=== PATIENT | male | born 1985 | race Caucasian/White ===

== ENCOUNTER 2019-01-08 09:26 | Outpatient (CLI) | payer BC | END 2019-01-08 09:27 | disposition home or self-care (01) | LOC: CTENTCT 09:26 | PROVIDERS: ATTEND Otolaryngology Plastic Surgery within the Head & Neck | DX: J01.81 Other acute recurrent sinusitis (principal) | CPT/HCPCS: 70486 ==

== ENCOUNTER 2019-02-20 07:30 | Day surgery (SDC) | payer BC ==
[2019-02-19 10:40] VITALS: BMI 27.8
[2019-02-20] MEDS ORDERED: Oxymetazoline HCl 0.05% ( 15 ML ) ONE ×3 (09:07→09:46)
[2019-02-20] MEDS ORDERED: Bacitracin Zinc Ointment 30 gm TUBE ONE ×2 (09:11→09:57)
[2019-02-20] MEDS ORDERED: Lidocaine 1% w/Epinephrine 1:100K 20 ML VIAL ONE (09:11)
[2019-02-20] MEDS ORDERED: Fentanyl 100 MCG/2 ML VIAL ONE ×2 (09:59→11:38)
[2019-02-20] MEDS ORDERED: Midazolam HCl 2 mg/2 ml Vial ONE (09:59)
[2019-02-20] MEDS ORDERED: Hydrocodone-Acetamin 15 ML UDCUP ONE (13:24)
--- NOTE | 2019-02-21 10:07 | OP ---
DATE OF PROCEDURE: 02/20/2019 PREOPERATIVE DIAGNOSES: 1. Chronic rhinosinusitis. 2. Nasal septal deviation. 3. Bilateral inferior turbinate hypertrophy. 4. Nasal obstruction. POSTOPERATIVE DIAGNOSES: 1. Chronic rhinosinusitis. 2. Nasal septal deviation. 3. Bilateral inferior turbinate hypertrophy. 4. Nasal obstruction. PROCEDURES PERFORMED: 1. Bilateral endoscopic sinus surgery, total ethmoidectomies. 2. Bilateral endoscopic sinus surgery, maxillary antrostomies. 3. Bilateral endoscopic sinus surgery, frontal sinusotomies. 4. Nasal septoplasty. 5. Bilateral inferior turbinate submucosal resection. ESTIMATED BLOOD LOSS: 0 mL. COMPLICATIONS: None. ANESTHESIA: GETA. PROCEDURE IN DETAIL: Patient was taken to the operating room and placed supine on the table. General endotracheal anesthesia was obtained by the anesthesia staff. Tube was secured in the left lower lip. Patient was then placed in the beach chair position, and Afrin pledgets were placed in the nasal cavity. Injections of 1% lidocaine with 1:100,000 epinephrine were made into the nasal septum as well as the inferior turbinates. Patient was then prepped and draped in standard surgical fashion for nasal surgery. Following this, the Afrin pledgets were removed. A Whitfield incision was made on the left nasal septum. Submucoperichondrial dissection was performed. The deviated portions of the septum included portions of the cartilage and the bony septum. These isolated areas were removed using 3 cutting rongeurs. There was noted to be a large dorsal and caudal strut, left intact for support of the nose. The mucoperichondrial flaps were then reapproximated using a 4-0 gut stitch. Any straight pieces of cartilage were crushed prior to this and placed between the mucoperichondrial flaps. Following this, the inferior turbinates were then punctured with a submucosal coblation wand, and submucosal coblations were performed of multiple areas of the inferior portion of the anterior inferior turbinate. Submucosal microdebrider was used to submucosally resect the anterior and inferior portions of the inferior turbinates. Following this, a 0-degree endoscope was advanced in the middle meatus. The middle turbinates were gently medialized using a [place] elevator and the uncinate process was then identified bilaterally. Following this, the uncinate process was anteriorly fractured using a ball-ended probe and then was removed bilaterally using the 0-degree microdebrider and the up-biting Blakesley forceps. Following this, the natural maxillary sinus ostia was identified and was gently widened using the curved microdebrider and the straight Blakesley forceps bilaterally. Following this, the large middle turbinate polyp versus papilloma-like material was removed using the straight Blakesley forceps and up-biting Blakesley forceps. These were sent for pathological analysis. Following this, the ethmoidal bulla was identified and was punctured on its medial and inferior aspect using the microdebrider and was removed bilaterally using the microdebrider and up-biting Blakesley forceps. Following this, the grand lamella was identified and was punctured into the posterior ethmoidal cells. Working from posterior to anterior, the ethmoidal cells were opened using the 0-degree microdebrider, 40-degree microdebrider, and up-biting Blakesley forceps. Following this, the 45-degree endoscope along with the curved microdebrider was used to further open the frontal sinus recess as well as identify the frontal sinus ostia, which was then widened using the microdebrider bilaterally. Following this, the nasal cavity was irrigated. Mirapex was placed within the middle meatus. Sanderson splints were placed and secured. The patient tolerated the procedure well. Job ID: [id number]
== END 2019-02-20 13:33 | disposition home or self-care (01) ==
LOC: SDC 07:30
PROVIDERS: ATTEND Otolaryngology Plastic Surgery within the Head & Neck
PROC: 09TL8ZZ Resection of Nasal Turbinate, Via Natural or Artificial Opening Endoscopic (ICD-10-PCS; principal; 2019-02-20)
PROC: 099R8ZZ Drainage of Left Maxillary Sinus, Via Natural or Artificial Opening Endoscopic (ICD-10-PCS; principal; 2019-02-20)
PROC: 09BM8ZZ Excision of Nasal Septum, Via Natural or Artificial Opening Endoscopic (ICD-10-PCS; principal; 2019-02-20)
PROC: 099Q8ZZ Drainage of Right Maxillary Sinus, Via Natural or Artificial Opening Endoscopic (ICD-10-PCS; principal; 2019-02-20)
DX: J34.2 Deviated nasal septum (principal); J34.3 Hypertrophy of nasal turbinates; J32.9 Chronic sinusitis, unspecified; J34.89 Other specified disorders of nose and nasal sinuses; Z87.891 Personal history of nicotine dependence
CPT/HCPCS: 88304; J2001; J2250; J3010